=== PATIENT | female | born 1955 | race Caucasian/White ===

== ENCOUNTER → 2018-02-27 | Outpatient (CLI) | payer BC ==
[~2018-02-27] MED LIST: BENZ-39 PO; CEFD300C3 PO; CITA10TA13 PO; DOXY-252 PO; GUAI600T50 PO; LACT1CAP58 PO; PROP225C11 PO; RIVA20TA PO; ROPI1TAB11 PO; SAXA5TAB PO; ZOLP5TAB8 PO
== END | disposition home or self-care (01) ==
LOC: RAH 15:58
PROVIDERS: ATTEND Internal Medicine
DX: S29.9XXA Unspecified injury of thorax, initial encounter (principal); M47.895 Other spondylosis, thoracolumbar region; X58.XXXA Exposure to other specified factors, initial encounter; Y93.89 Activity, other specified; Y92.89 Other specified places as the place of occurrence of the external cause; Y99.8 Other external cause status
CPT/HCPCS: 71046; 71100

== ENCOUNTER 2018-03-15 11:27 | Emergency (ER) | payer BC ==
[2018-03-15] MEDS ORDERED: SODIUM CHLORIDE 0.9% 500ML 500 ML IV ONE (12:00)
[2018-03-15] MEDS ORDERED: ASPIRIN 325 MG TABLET ONE (12:00)
[2018-03-15] MEDS ORDERED: METOPROLOL TARTRATE 1 MG/ML 5ML VIAL IV ONE (12:00)
[2018-03-15 12:06] LABS: BASOPHILS % (AUTO) 0.8 % (0.0-5.0); EOSINOPHILS % (AUTO) 2.2 % (0.0-8.0); HEMATOCRIT 41.7 % (36-48); LYMPHOCYTES % (AUTO) 27.4 % (21.0-51.0); MEAN CORPUSCULAR HEMOGLOBIN 27.1 pg (27.0-33.0); MEAN CORPUSCULAR HGB CONC 33.4 g/dL (32.0-36.0); MEAN CORPUSCULAR VOLUME 81.1 fL (79-99); MONOCYTES % (AUTO) 5.8 % (3.0-13.0); NEUTROPHILS % (AUTO) 63.8 % (40.0-77.0); PLATELET COUNT (AUTO) 202 K/uL (130-400); RED BLOOD CELL COUNT(AUTO) 5.14 MIL/uL (4.00-5.50); RED CELL DISTRIBUTION WIDTH 14.5 % (11.0-15.5)
[2018-03-15 12:14] LABS: POTASSIUM 3.3 mmol/L (3.5-5.1)
[2018-03-15 12:17] LABS: INR 0.95 (0.85-1.15); PARTIAL THROMBOPLASTIN TIME 25.2 SEC (26.3-35.5)
[2018-03-15 12:28] LABS: ALBUMIN 3.9 g/dL (3.5-5.0); BILIRUBIN,TOTAL 0.6 mg/dL (0.2-1.0); CREATINE KINASE MB 1.4 ng/mL (0.5-3.6); TOTAL PROTEIN, SERUM 7.2 g/dL (6.0-8.3)
[2018-03-15] MEDS ORDERED: METOPROLOL TARTRATE 25 MG TAB ONE (14:18)
[2018-03-15] MEDS ORDERED: POTASSIUM BICARB/CIT AC 25 MEQ TABLET.EFF ONE (14:18)
== END 2018-03-15 14:37 | disposition home or self-care (01) ==
LOC: EDH 11:27
DX: T82.198A Other mechanical complication of other cardiac electronic device, initial encounter (principal); I48.91 Unspecified atrial fibrillation; I25.10 Atherosclerotic heart disease of native coronary artery without angina pectoris; E11.9 Type 2 diabetes mellitus without complications; Z88.8 Allergy status to other drugs, medicaments and biological substances
CPT/HCPCS: 36415; 80053; 82550; 82553; 82948; 83735; 83880; 84484; 85025; 85610; 85730; 93005; 96361; 96374; 99285; J3490; J7040

== ENCOUNTER → 2020-06-03 | Outpatient (CLI) | payer MEDICARE ==
[~2020-06-03] MED LIST changes: -ROPI1TAB11 PO; +ROPI1TAB13 PO
== END | disposition home or self-care (01) ==
LOC: RAH 12:27
PROVIDERS: ATTEND Internal Medicine
DX: S59.912A Unspecified injury of left forearm, initial encounter (principal); X58.XXXA Exposure to other specified factors, initial encounter; Y93.89 Activity, other specified; Y92.89 Other specified places as the place of occurrence of the external cause; Y99.8 Other external cause status
CPT/HCPCS: 73030; 73090; 73110

== ENCOUNTER → 2021-02-25 | Outpatient (CLI) | payer MEDICARE | END | disposition home or self-care (01) | LOC: RAH 11:27 | PROVIDERS: ATTEND Internal Medicine | DX: R06.02 Shortness of breath (principal) | CPT/HCPCS: 71046 ==

== ENCOUNTER 2021-04-15 10:27 | Observation (INO) | payer MEDICARE ==
[~2021-04-15] VITALS: Ht 166.4 cm; Wt 57.4 kg
[2021-04-15] MEDS ORDERED: AMIODARONE HCL 450 MG in DEXTROSE 5%-WATER 250 ML IV SCH (11:00)
[2021-04-15] MEDS ORDERED: AMIODARONE HCL 150 MG in DEXTROSE 5%-WATER 100 ML IV SCH (11:00)
[2021-04-15] MEDS ORDERED: AMIODARONE HCL 360 MG in DEXTROSE 5%-WATER 200 ML IV SCH (11:00)
[2021-04-15 11:14] LABS: BASOPHILS % (AUTO) 0.9 % (0.0-5.0); EOSINOPHILS % (AUTO) 3.9 % (0.0-8.0); HEMATOCRIT 45.4 % (36-48); LYMPHOCYTES % (AUTO) 32.3 % (21.0-51.0); MEAN CORPUSCULAR HEMOGLOBIN 26.2 pg (27.0-33.0); MEAN CORPUSCULAR HGB CONC 32.2 g/dL (32.0-36.0); MEAN CORPUSCULAR VOLUME 81.4 fL (79-99); MONOCYTES % (AUTO) 6.1 % (3.0-13.0); NEUTROPHILS % (AUTO) 56.5 % (40.0-77.0); PLATELET COUNT (AUTO) 234 K/uL (130-400); RED BLOOD CELL COUNT(AUTO) 5.58 MIL/uL (4.00-5.50); RED CELL DISTRIBUTION WIDTH 13.1 % (11.0-15.5); WHITE BLOOD COUNT (AUTO) 7.4 K/uL (4.8-10.8)
[2021-04-15] MEDS ORDERED: ONDANSETRON HCL 4 MG/2 ML VIAL IVP PRN (11:15)
[2021-04-15 11:29] LABS: ALBUMIN 3.7 g/dL (3.5-5.0); BILIRUBIN,TOTAL 0.8 mg/dL (0.2-1.0); POTASSIUM 3.3 mmol/L (3.5-5.1); THYROID STIMULATING HORMONE 1.64 uIU/mL (0.36-3.74); TOTAL PROTEIN, SERUM 7.2 g/dL (6.0-8.3)
[2021-04-15] MEDS ORDERED: PHARMACY COMMUNICATION MISC SCH (12:45)
[2021-04-15 13:05] VITALS: BP 148/80
[2021-04-15 16:00] VITALS: BP 133/88
[2021-04-15 20:28] VITALS: BP 140/81
[2021-04-15] MEDS ORDERED: ROPINIROLE HCL 1 MG TABLET PO SCH (21:00)
[2021-04-15] MEDS ORDERED: RIVAROXABAN 20 MG TABLET PO SCH (21:00)
[2021-04-15] MEDS: CARVEDILOL 6.25 MG TABLET PO SCH (21:31)
[2021-04-15] MEDS: METOPROLOL TARTRATE 50 MG TAB PO SCH (21:31)
[2021-04-15] MEDS: TRAMADOL HCL 50 MG TABLET PO SCH (21:35)
[2021-04-16 00:28] VITALS: BP 115/70
[2021-04-16 04:28] VITALS: BP 110/77
[2021-04-16 07:00] VITALS: BP 121/75
[2021-04-16] MEDS: CARVEDILOL 6.25 MG TABLET PO SCH (07:57)
[2021-04-16] MEDS: METOPROLOL TARTRATE 50 MG TAB PO SCH (07:57)
[2021-04-16] MEDS: TRAMADOL HCL 50 MG TABLET PO SCH (07:57)
[2021-04-16] MEDS ORDERED: [UNRECOGNIZED DRUG - OTHER] NASAL SCH (09:00)
[2021-04-16] MEDS ORDERED: IPRATROPIUM 0.06% NASAL SCH (09:00)
[2021-04-16] MEDS ORDERED: ONGLYZA 5 MG PO SCH (09:00)
[2021-04-16 11:00] VITALS: BP 124/84
[2021-04-16] MEDS ORDERED: IOHEXOL 350 MG/ML 100ML INFUS..BTL IV ONE (12:45)
[2021-04-16 16:00] VITALS: BP 139/78
[2021-04-16] MEDS ORDERED: AMIO200T6 PO (16:19)
== END 2021-04-16 17:00 | disposition home or self-care (01) ==
LOC: EDH 10:27 → EDHIP 10:28 → 4CH 13:00
PROVIDERS: ADMIT Internal Medicine Cardiovascular Disease; ATTEND Internal Medicine Cardiovascular Disease
DX: I48.0 Paroxysmal atrial fibrillation (principal); I42.2 Other hypertrophic cardiomyopathy; I47.2 Ventricular tachycardia; E11.9 Type 2 diabetes mellitus without complications; Z86.711 Personal history of pulmonary embolism; Z95.828 Presence of other vascular implants and grafts; Z95.810 Presence of automatic (implantable) cardiac defibrillator; Z79.899 Other long term (current) drug therapy; Z88.8 Allergy status to other drugs, medicaments and biological substances
CPT/HCPCS: 36415; 75574; 80053; 82948 ×5; 84443; 85025; 93005 ×2; 96365; 96366; 96375; 99285; G0378 ×27; J0282 ×5; J2405; J7060 ×5; Q9967

== ENCOUNTER → 2021-05-25 | Outpatient (CLI) | payer MEDICARE ==
[~2021-05-25] MED LIST changes: +AMIO200T6 PO; -PROP225C11 PO
[2021-05-25 11:36] LABS: BASOPHILS % (AUTO) 0.6 % (0.0-5.0); EOSINOPHILS % (AUTO) 2.2 % (0.0-8.0); HEMATOCRIT 43.2 % (36-48); LYMPHOCYTES % (AUTO) 22.9 % (21.0-51.0); MEAN CORPUSCULAR HEMOGLOBIN 26.6 pg (27.0-33.0); MEAN CORPUSCULAR VOLUME 85.9 fL (79-99); MONOCYTES % (AUTO) 6.4 % (3.0-13.0); NEUTROPHILS % (AUTO) 67.8 % (40.0-77.0); PLATELET COUNT (AUTO) 187 K/uL (130-400); RED BLOOD CELL COUNT(AUTO) 5.03 MIL/uL (4.00-5.50); RED CELL DISTRIBUTION WIDTH 13.2 % (11.0-15.5); WHITE BLOOD COUNT (AUTO) 8.3 K/uL (4.8-10.8)
[2021-05-25 11:44] LABS: CREATININE 1.1 mg/dL (0.5-1.5); POTASSIUM 4.4 mmol/L (3.5-5.1)
== END | disposition home or self-care (01) ==
LOC: LAB 10:18
PROVIDERS: ATTEND Urology
DX: R31.29 Other microscopic hematuria (principal)
CPT/HCPCS: 36415; 80048; 85025

== ENCOUNTER → 2021-05-26 | Outpatient (CLI) | payer MEDICARE ==
[~2021-05-26] MED LIST changes: +IOHEXOL 350 MG/ML 100ML INFUS..BTL IV ONE
== END | disposition home or self-care (01) ==
LOC: RAH 09:46
PROVIDERS: ATTEND Urology
DX: N20.0 Calculus of kidney (principal); I70.0 Atherosclerosis of aorta
CPT/HCPCS: 74178; Q9967

== ENCOUNTER 2021-08-24 06:23 | Day surgery (SDC) | payer MEDICARE ==
[~2021-08-24] VITALS: Ht 165.1 cm; Wt 55.6 kg
[~2021-08-24 06:23] MED LIST changes: +0.9%NACL 1000ML 1,000 ML IV ONE; -AMIO200T6 PO; +AMIO200T68 PO; -BENZ-39 PO; +CARV25TA PO; -CEFD300C3 PO; -CITA10TA13 PO; -DOXY-252 PO; +GABA-529 PO; -GUAI600T50 PO; -IOHEXOL 350 MG/ML 100ML INFUS..BTL IV ONE; +IPRA3S NASAL; +METO-391 PO; +OMEP40CA21 PO; +PREVAGEN PO; -ROPI1TAB13 PO; +ROSU10TA28 PO; +TRAM50TA4 PO; -ZOLP5TAB8 PO
[2021-08-24 07:10] VITALS: BP 146/72
[2021-08-24] MEDS ORDERED: PROPOFOL 10 MG/ML 20ML VIAL IV ONE ×2 (08:09→08:37)
[2021-08-24 08:55] VITALS: BP 100/49
[2021-08-24 09:00] VITALS: BP 109/57
[2021-08-24 09:10] VITALS: BP 141/73
== END 2021-08-24 09:26 | disposition home or self-care (01) ==
LOC: DAH 06:23
PROVIDERS: ATTEND Internal Medicine Gastroenterology
DX: Z12.11 Encounter for screening for malignant neoplasm of colon (principal); Z20.822 Contact with and (suspected) exposure to COVID-19; D12.0 Benign neoplasm of cecum; R14.0 Abdominal distension (gaseous); K29.50 Unspecified chronic gastritis without bleeding; K31.89 Other diseases of stomach and duodenum; K63.89 Other specified diseases of intestine; I11.0 Hypertensive heart disease with heart failure; E11.9 Type 2 diabetes mellitus without complications; I50.9 Heart failure, unspecified; E78.5 Hyperlipidemia, unspecified; I48.91 Unspecified atrial fibrillation; Z86.010 Personal history of colon polyps; Z79.84 Long term (current) use of oral hypoglycemic drugs; Z79.01 Long term (current) use of anticoagulants; Z90.710 Acquired absence of both cervix and uterus; Z98.890 Other specified postprocedural states
CPT/HCPCS: 43239; 45381; 45385; 82948; 87635; 88305; 88342; A4215 ×2; A4221; A4222; A4223; A4606; A4620; A4663; C9803; J2704 ×2; J7030

== ENCOUNTER → 2021-11-11 | Outpatient (CLI) | payer MEDICARE ==
[~2021-11-11] MED LIST changes: -0.9%NACL 1000ML 1,000 ML IV ONE
== END | disposition home or self-care (01) ==
LOC: RAH 13:33
PROVIDERS: ATTEND Internal Medicine Cardiovascular Disease
DX: I08.0 Rheumatic disorders of both mitral and aortic valves (principal); I11.9 Hypertensive heart disease without heart failure
CPT/HCPCS: 93306; 93356

== ENCOUNTER 2022-03-06 10:05 | Emergency (ER) | payer MEDICARE ==
[~2022-03-06] VITALS: Ht 170.2 cm; Wt 54.4 kg
[~2022-03-06 10:05] MED LIST changes: -AMIO200T68 PO; -CARV25TA PO; +GLIM1TAB18 PO; -LACT1CAP58 PO; +LINA290C PO; +LISI5TAB21 PO; -METO-391 PO; +METO25TA6 PO; -OMEP40CA21 PO; -PREVAGEN PO; -ROSU10TA28 PO; -TRAM50TA4 PO
[2022-03-06] MEDS ORDERED: ACETAMINOPHEN 500 MG TABLET PO ONE (11:00)
[2022-03-06 11:20] LABS: BASOPHILS % (AUTO) 0.7 % (0.0-5.0); EOSINOPHILS % (AUTO) 2.1 % (0.0-8.0); HEMATOCRIT 39.1 % (36-48); LYMPHOCYTES % (AUTO) 18.6 % (21.0-51.0); MEAN CORPUSCULAR HEMOGLOBIN 26.3 pg (27.0-33.0); MEAN CORPUSCULAR HGB CONC 31.2 g/dL (32.0-36.0); MEAN CORPUSCULAR VOLUME 84.4 fL (79-99); MONOCYTES % (AUTO) 5.9 % (3.0-13.0); NEUTROPHILS % (AUTO) 72.5 % (40.0-77.0); PLATELET COUNT (AUTO) 214 K/uL (130-400); RED BLOOD CELL COUNT(AUTO) 4.63 MIL/uL (4.00-5.50); RED CELL DISTRIBUTION WIDTH 13.8 % (11.0-15.5); WHITE BLOOD COUNT (AUTO) 5.8 K/uL (4.8-10.8)
[2022-03-06 11:21] LABS: CREATININE 0.9 mg/dL (0.5-1.5); POTASSIUM 3.9 mmol/L (3.5-5.1)
[2022-03-06 11:26] LABS: ALBUMIN 3.5 g/dL (3.5-5.0); BILIRUBIN,TOTAL 0.5 mg/dL (0.2-1.0); TOTAL PROTEIN, SERUM 6.6 g/dL (6.0-8.3)
[2022-03-06 12:53] VITALS: BP 152/77
== END 2022-03-06 13:01 | disposition home or self-care (01) ==
LOC: EDH 10:05
DX: S01.81XA Laceration without foreign body of other part of head, initial encounter (principal); Z79.01 Long term (current) use of anticoagulants; Z79.899 Other long term (current) drug therapy; I48.91 Unspecified atrial fibrillation; Z86.718 Personal history of other venous thrombosis and embolism; Z86.711 Personal history of pulmonary embolism; Z98.890 Other specified postprocedural states; W18.30XA Fall on same level, unspecified, initial encounter; Y93.9 Activity, unspecified; Y92.9 Unspecified place or not applicable; Y99.9 Unspecified external cause status
CPT/HCPCS: 36415; 70450; 73020; 80053; 84484; 85025; 93005

== ENCOUNTER → 2022-05-12 | Outpatient (CLI) | payer MEDICARE ==
[2022-05-12 12:54] LABS: ALBUMIN 3.8 g/dL (3.5-5.0); BILIRUBIN,TOTAL 0.4 mg/dL (0.2-1.0); POTASSIUM 4.1 mmol/L (3.5-5.1)
== END | disposition home or self-care (01) ==
LOC: LAB 11:29
PROVIDERS: ATTEND Internal Medicine Cardiovascular Disease
DX: I10 Essential (primary) hypertension (principal)
CPT/HCPCS: 36415; 80053

== ENCOUNTER → 2022-05-16 | Outpatient (CLI) | payer MEDICARE ==
[~2022-05-16] MED LIST changes: +IOHEXOL-350 50ML VIAL IV ONE
== END | disposition home or self-care (01) ==
LOC: RAH 12:00
PROVIDERS: ATTEND Internal Medicine Cardiovascular Disease
DX: I51.7 Cardiomegaly (principal); I26.99 Other pulmonary embolism without acute cor pulmonale
CPT/HCPCS: 71270; Q9967

== ENCOUNTER → 2022-07-19 | Outpatient (CLI) | payer MEDICARE ==
[~2022-07-19] MED LIST changes: -IOHEXOL-350 50ML VIAL IV ONE
== END | disposition home or self-care (01) ==
LOC: RAH 10:57
PROVIDERS: ATTEND Internal Medicine
DX: M47.816 Spondylosis without myelopathy or radiculopathy, lumbar region (principal); M16.12 Unilateral primary osteoarthritis, left hip
CPT/HCPCS: 72100; 73502

== ENCOUNTER → 2023-09-04 | Outpatient (CLI) | payer MEDICARE ==
[2023-09-04 12:43] LABS: BASOPHILS # (AUTO) 0.04 K/uL (0.00-0.20); BASOPHILS % (AUTO) 0.6 % (0.0-5.0); EOSINOPHILS % (AUTO) 1.5 % (0.0-8.0); HEMATOCRIT 38.9 % (36-48); IMMATURE GRANULOCYTE ABSOLUTE 0.02 K/uL (0-1); LYMPHOCYTES # (AUTO) 2.4 K/uL (1.0-4.8); MEAN CORPUSCULAR HEMOGLOBIN 26.8 pg (27.0-33.0); MEAN CORPUSCULAR HGB CONC 30.6 g/dL (32.0-36.0); MEAN CORPUSCULAR VOLUME 87.6 fL (79-99); MONOCYTES # (AUTO) 0.5 K/uL (0.1-1.0); MONOCYTES % (AUTO) 7.9 % (3.0-13.0); NEUTROPHILS # (AUTO) 3.7 K/uL (1.8-7.7); NEUTROPHILS % (AUTO) 54.7 % (40.0-77.0); PLATELET COUNT (AUTO) 182 K/uL (130-400); RED BLOOD CELL COUNT(AUTO) 4.44 MIL/uL (4.00-5.50); RED CELL DISTRIBUTION WIDTH 13.5 % (11.0-15.5); WHITE BLOOD COUNT (AUTO) 6.7 K/uL (4.8-10.8)
[2023-09-04 12:54] LABS: ALBUMIN 3.8 g/dL (3.5-5.0); BILIRUBIN,TOTAL 0.8 mg/dL (0.2-1.0); CREATININE 0.7 mg/dL (0.5-1.5); TOTAL PROTEIN, SERUM 6.8 g/dL (6.0-8.3)
[2023-09-04 13:12] LABS: B-TYPE NATRIURETIC PEPTIDE 259 pg/mL (0-100)
== END | disposition home or self-care (01) ==
LOC: LAB 09:49
PROVIDERS: ATTEND Internal Medicine Cardiovascular Disease
DX: I50.32 Chronic diastolic (congestive) heart failure (principal); Z79.899 Other long term (current) drug therapy
CPT/HCPCS: 36415; 80053; 80061; 83880; 85025

== ENCOUNTER → 2023-10-19 | Outpatient (CLI) | payer MEDICARE | END | disposition home or self-care (01) | LOC: RAH 13:09 | PROVIDERS: ATTEND Internal Medicine | DX: Z12.31 Encounter for screening mammogram for malignant neoplasm of breast (principal) | CPT/HCPCS: 77067 ==

== ENCOUNTER → 2024-12-24 | Outpatient (CLI) | payer MEDICARE ==
[~2024-12-24] MED LIST changes: -GLIM1TAB18 PO; +GLIM1TAB56 PO
[2024-12-24 11:59] LABS: BASOPHILS # (AUTO) 0.04 K/uL (0.00-0.20); BASOPHILS % (AUTO) 0.7 % (0.0-5.0); EOSINOPHILS # (AUTO) 0.19 K/uL (0.00-0.70); EOSINOPHILS % (AUTO) 3.2 % (0.0-8.0); HEMATOCRIT 38.2 % (36-48); IMMATURE GRANULOCYTE ABSOLUTE 0.02 K/uL (0-1); LYMPHOCYTES # (AUTO) 2.3 K/uL (1.0-4.8); LYMPHOCYTES % (AUTO) 39.7 % (21.0-51.0); MEAN CORPUSCULAR HEMOGLOBIN 26.7 pg (27.0-33.0); MEAN CORPUSCULAR HGB CONC 31.2 g/dL (32.0-36.0); MEAN CORPUSCULAR VOLUME 85.8 fL (79-99); MONOCYTES # (AUTO) 0.4 K/uL (0.1-1.0); MONOCYTES % (AUTO) 6.2 % (3.0-13.0); NEUTROPHILS # (AUTO) 2.9 K/uL (1.8-7.7); NEUTROPHILS % (AUTO) 49.9 % (40.0-77.0); PLATELET COUNT (AUTO) 163 K/uL (130-400); RED BLOOD CELL COUNT(AUTO) 4.45 MIL/uL (4.00-5.50); RED CELL DISTRIBUTION WIDTH 13.4 % (11.0-15.5); WHITE BLOOD COUNT (AUTO) 5.9 K/uL (4.8-10.8)
[2024-12-24 12:20] LABS: ALBUMIN 3.5 g/dL (3.5-5.0); BILIRUBIN,TOTAL 0.8 mg/dL (0.2-1.0); CREATININE 0.7 mg/dL (0.5-1.0); POTASSIUM 4.2 mmol/L (3.5-5.1); TOTAL PROTEIN, SERUM 6.5 g/dL (6.0-8.3)
== END | disposition home or self-care (01) ==
LOC: LAB 09:52
PROVIDERS: ATTEND Internal Medicine Cardiovascular Disease
DX: I42.2 Other hypertrophic cardiomyopathy (principal); I47.19 Other supraventricular tachycardia; Z79.899 Other long term (current) drug therapy
CPT/HCPCS: 36415; 80053; 80061; 85025

== ENCOUNTER 2025-04-11 12:07 | Emergency (ER) | payer MEDICARE ==
[~2025-04-11] VITALS: Ht 165.1 cm; Wt 48.1 kg
[2025-04-11] MEDS: GABApentin 100 MG CAPSULE PO STA (12:26)
--- NOTE | 2025-04-11 12:30 | ERN ---
General Chief Complaint: Rib Pain Stated Complaint: POSSIBLE BROKEN RIB Time Seen by MD: 12:09 Source: patient History of Present Illness Initial Comments PATIENT IS A 69-YEAR-OLD FEMALE COMING IN TO BE EVALUATED FOR RIGHT-SIDED CHEST PAIN. PATIENT STATES THAT THE CHEST PAIN OCCURRED WHEN SHE ACCIDENTALLY HIT HERSELF WITH THE FURNITURE. SHE STATES THAT HER PAIN IS IMPROVING BUT HER FAMILY MEMBERS TOLD HER TO COME IN FOR FURTHER EVALUATION. Allergies: Coded Allergies: No Known Drug Allergies (Verified Allergy, 03/26/13) Home Meds Reported Medications Gabapentin (Gabapentin) 100 Mg Capsule, 100 MG PO HS, CAP 01/18/22 Metoprolol Tartrate (Metoprolol Tartrate) 25 Mg Tablet, 25 MG PO HS, TAB 01/18/22 Glimepiride (Glimepiride) 1 Mg Tablet, 1 MG PO HS, TAB 01/18/22 Lisinopril (Lisinopril) 5 Mg Tablet, 5 MG PO HS, TAB 01/18/22 Linaclotide (Linzess) 290 Mcg Capsule, 290 MCG PO HS, CAP 01/18/22 Saxagliptin HCl (Onglyza) 5 Mg Tablet, 5 MG PO PM, TAB 08/23/21 Ipratropium [place] (Atrovent 0.03% Nasal [place]) 21 Mcg/[place], 21 MCG NASAL DAILY, SPRAY 08/23/21 Rivaroxaban (Xarelto) 20 Mg Tablet, 20 MG PO HS, TAB 12/18/16 Past Medical History Past Medical History: A-Fib, Anemia, Diabetes-Type II, High Cholesterol, Hypertension Medical History Other: CARDIOMYOPATHY, HX OF PULMONARY EMBOLISMS, HYPOKALEMIA Past Surgical History: Hysterectomy, Pacer/AICD Surgical History Other: ABLATION Social History Social History: Negative, Lives with family Female( History) History: Not Applicable ROS Dictation CONSTITUTIONAL: NO CHILLS, NO FEVER, NO WEAKNESS, NO DIAPHORESIS, NO MALAISE. HEAD/FACE: NO SIGNS OF TRAUMA. EENT: NO EYE PAIN, NO BLURRED VISION, NO TEARING, NO DOUBLE VISION, NO EAR PAIN, NO EAR DISCHARGE, NO NOSE PAIN, NO NASAL CONGESTION, NO THROAT PAIN, NO THROAT SWELLING, NO MOUTH PAIN. RESPIRATORY: NO COUGH, NO ORTHOPNEA, NO SOB, NO STRIDOR, NO WHEEZING. CARDIOVASCULAR: NO CHEST PAIN, NO EDEMA, NO PALPITATIONS, NO SYNCOPE. GASTROINTESTINAL/ABDOMINAL: NO ABDOMINAL PAIN, NO CONSTIPATION, NO DIARRHEA, NO NAUSEA, NO VOMITING. GENITOURINARY: NO ABNORMAL DISCHARGE, NO DYSURIA, NO FREQUENT URINATION, NO HEMATURIA. NO COMPLAINTS OF PAIN IN THE GENITALS. MUSCULOSKELETAL: NO BACK PAIN, NO GOUT, NO JOINT PAIN, NO JOINT SWELLING, NO MUSCLE PAIN, NO MUSCLE STIFFNESS, NO NECK PAIN. INTEGUMENTARY: NO CHANGE IN COLOR, NO CHANGE IN HAIR/NAILS, NO DRYNESS, NO LESION, NO LUMPS, NO RASH. NEUROLOGICAL/PSYCH: NO ANXIETY, NOT DEPRESSED, NO EMOTIONAL PROBLEM, NO HEADACHE, NO NUMBNESS, NO PRE-EXISTING DEFICIT, NO HISTORY OF SEIZURES, NO TREMORS, NO WEAKNESS. HEMATOLOGIC/LYMPHATIC: NOT ANEMIC, NO HISTORY OF BLOOD CLOTS, NO APPARENT BLEEDING, NO BRUISING, GLANDS NOT SWOLLEN. ALL SYSTEMS NEGATIVE, EXCEPT NOTED. Physical Exam Physical Exam Dictation VITAL SIGNS: REVIEWED. GENERAL APPEARANCE: ALERT, ORIENTED X3, NO ACUTE DISTRESS, OBESE. HEAD AND FACE: NON-TRAUMATIC. EYES: PERRL, PINK CONJUNCTIVAS, EYELID NO TRAUMA, ANTERIOR CHAMBER CLEAR. EARS: PINNAS INTACT AND NO SIGNS OF TRAUMA OR ERYTHEMA. EAR CANALS CLEAR AND NO DISCHARGE. TMS NO ERYTHEMA. NOSE: NO DISCHARGE, NO BLEEDING. OROPHARYNX: MOUTH NORMAL, TEETH NO CARIES, TONGUE PINK. PHARYNX CLEAR, NO ERYTHEMA. TONSILS NO EXUDATES, NO ABSCESSES NOTED. MUCOUS MEMBRANE MOIST. NECK: SUPPLE, NON-TENDER, NO THYROMEGALY, NO MASSES, NO JVD, NO BRUITS. BREAST: DEFERRED. CHEST: NO TENDERNESS, NO CREPITUS, NO PARADOXICAL MOVEMENT, NO RETRACTIONS. LUNGS: CLEAR, WELL-VENTILATED, SYMMETRIC, NO RALES, NO WHEEZING, NO RHONCHI, NO STRIDOR, GOOD BREATH SOUNDS BILATERALLY. HEART: REGULAR RATE, REGULAR RHYTHM, NO MURMUR, NO GALLOPS. VASCULAR: NO PERIPHERAL EDEMA. ABDOMEN: SOFT, POSITIVE BOWEL SOUNDS, NONDISTENDED, NO GUARDING, NONTENDER, NO REBOUND, NO MASSES NO HEPATOMEGALY, NO SPLENOMEGALY, NO HERNANDEZ'S SIGN, NO HERNIAS. RECTAL: DEFERRED. GENITAL: DEFERRED. NEUROLOGICAL: NORMAL SPEECH, GROSS MOTOR FUNCTION INTACT, GROSS SENSORY FUNCTION INTACT. MUSCULOSKELETAL: NECK NONTENDER, FULL RANGE OF MOTION, BACK NONTENDER, FULL RANGE OF MOTION. EXTREMITIES: NONTENDER, FULL RANGE OF MOTION. SKIN: COLOR PINK, DRY, NO TURGOR, NO RASH, NO LACERATIONS, NO ABRASIONS, NO CONTUSIONS. LYMPHATICS: DEFERRED. Results Laboratory and Microbiology Labs Reviewed?: Yes EKG/XRAY/US/CT/MRI EKG Comment 04/11/2025 TIME 12:19 P.M. VENTRICULAR RATE [address] WAVE ELEVATION OR DEPRESSION CT Scan Comment [facility] [address] [place] [address] IMAGING REPORT Signed PATIENT: LUPE BRITO MR#: [id number] : 1955 SEX: F AGE: 69 LOCATION: [facility] ORDER 38 STATUS: [facility] ER REPORT#: [id number] SERVICE 37 REASON: RIGHT LOWER RIB PAIN ORDERING PHYSICIAN: YENIFER MENDOZA MD PROCEDURE: CHEST WO - CT CHEST W/O CONTRAST CT CHEST W/O CONTRAST HISTORY: Right lower rib pain COMPARISON: None TECHNIQUE: Multiple sequential axial images of the chest were obtained from the thoracic inlet through upper abdomen. Patient was not given contrast through intravenous route. FINDINGS: There is no evidence of pulmonary nodule or parenchymal disease. No pleural effusion or pericardial effusion is seen. There is no evidence of pneumothorax. There are normal size mediastinal and hilar lymph nodes. The heart is not enlarged. Degenerative changes of the thoracolumbar spine are present. There is no evidence of adrenal nodule. Coronary artery calcifications are seen. IVC filter. Mild interstitial fibrotic changes as IMPRESSION: 1. No evidence of pulmonary nodule or effusion is seen. CT was performed with one or more following dose reduction techniques: automated exposure control, adjustment of the mA and kv according to patient's size, or use of a iterative reconstruction technique. DICTATED BY: KYREE MCKAY MD DATE: 04/11/25 1446 ELECTRONICALLY SIGNED BY: KYREE MCKAY MD DATE: 04/11/25 145 [facility] MDM: DIFFERENTIAL DIAGNOSIS: COSTOCHONDRITIS, CHEST WALL PAIN, RIB FRACTURE, RATIONALE: TESTS CONSIDERED AND ORDERED SECONDARY TO SHARED DECISION MAKING INCLUDE: PREVIOUS OUTSIDE RECORDS REVIEWED: OLD ER VISITS. RISK OF COMPLICATION AND/OR MORBIDITY OR MORTALITY OF PATIENT MANAGEMENT: NONE MEDICATIONS-PER MEDICATION RECONCILIATION PATIENT IS A 69-YEAR-OLD FEMALE COMING IN TO BE EVALUATED FOR RIGHT-SIDED CHEST PAIN. SHE ATTRIBUTES THE PAIN TO HITTING HERSELF WITH SOME FURNITURE. X-RAY AND EKG DID NOT DISCLOSE ACUTE FINDINGS. PATIENT WILL BE DISCHARGED IN STABLE CONDITION WITH A DIAGNOSIS OF CHEST WALL PAIN. ED Course Orders Procedure Category Date Status Time 12 Lead Ekg Tracing- EKG 04/11/25 Resulted Technical 12:13 Ribs Uni Rt W Pa RAD 04/11/25 Taken Chest 3+ Vws 12:13 Gabapentin 100 Mg Cap PHA 04/11/25 Complete (Neurontin 100 Mg 12:13 Ct Chest W/O Contrast CT 04/11/25 Resulted 13:38 Current Medications Medications (Trade) Dose Ordered Sig/Aryan Route PRN Reason Start Time Stop Time Status Last Admin Dose Admin Gabapentin (NEURontin 100 mg CAP) 100 mg ONCE STAT PO 04/11/25 12:13 04/11/25 12:24 DC 04/11/25 12:26 Vital Signs Date Time Temp Pulse Resp B/P (MAP) Pulse Ox O2 Delivery O2 Flow Rate FiO2 04/11/25 12:10 99.0 78 16 157/76 98 Room Air DX & DISP Disposition: Discharge Departure Impression: Primary Impression: Costochondritis, acute Condition: Stable Scripts Gabapentin (Gabapentin) 100 Mg Capsule 1 CAP PO BID for 5 Days, #10 CAP 0 Refills Prov: YENIFER MENDOZA MD 04/11/25 Additional Instructions: FOLLOW-UP WITH PRIMARY CARE PROVIDER IN 1 TO 2 DAYS. TAKE MEDICATIONS DIRECTED HERE IN THE EMERGENCY ROOM. OKAY TO CONTINUE HOME MEDICATIONS UNLESS OTHERWISE DISCUSSED DURING YOUR VISIT IN THE EMERGENCY ROOM TODAY. RETURN TO YOUR NEAREST EMERGENCY ROOM IF SYMPTOMS WORSEN OR IF THERE IS NO IMPROVEMENT. CALL 911 IF YOU NEED IMMEDIATE ASSISTANCE. TAKE TYLENOL EYTJ-PTY-ADVYOAM NEEDED AND IF NO CONTRAINDICATIONS ARE PRESENT. INCREASE ORAL HYDRATION. A WOUND CULTURE OR URINE CULTURE WAS ORDERED HERE IN THE EMERGENCY ROOM DEPARTMENT PLEASE FOLLOW-UP WITH PRIMARY CARE PROVIDER AND ADVISE THEM TO GET REPEAT PORTS FROM OUR FACILITY. IF YOU HAD ANY RAHAT WRAP/SPLINTS THAT WERE APPLIED HERE, PLEASE DO NOT REMOVE THEM UNTIL YOU SEE YOUR PRIMARY CARE OR SPECIALTY. REFERRALS: Referrals: VIRGIE LEE MD (PCP) Time of Disposition: 15:11 YENIFER MENDOZA MD April 11, 2025 12:30
--- NOTE | 2025-04-11 13:22 | EKG ---
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1955 Requested By: YENIFER MENDOZA Order Number: [id number] Reading MD: Silvia Patterson Measurements Intervals [place] Rate: 69 P: 16 [place]: 144 QRS: 35 QRSD: 93 T: 27 QT: 444 QTc: 472 Interpretive Statements Sinus rhythm Atrial premature complex Nonspecific T abnrm, anterolateral leads Compared to ECG 03/06/2022 10:20:27 Atrial premature complex(es) now present Atrial-paced complex(es) or rhythm no longer present Ventricular-paced complex(es) or rhythm no longer present Electronically Signed On 04-11-2025 14:49:34 CDT by Silvia Patterson Please click the below link to view image of tracing.
--- NOTE | 2025-04-11 14:55 | HMCIMG ---
CT CHEST W/O CONTRAST HISTORY: Right lower rib pain COMPARISON: None TECHNIQUE: Multiple sequential axial images of the chest were obtained from the thoracic inlet through upper abdomen. Patient was not given contrast through intravenous route. FINDINGS: There is no evidence of pulmonary nodule or parenchymal disease. No pleural effusion or pericardial effusion is seen. There is no evidence of pneumothorax. There are normal size mediastinal and hilar lymph nodes. The heart is not enlarged. Degenerative changes of the thoracolumbar spine are present. There is no evidence of adrenal nodule. Coronary artery calcifications are seen. IVC filter. Mild interstitial fibrotic changes as IMPRESSION: 1. No evidence of pulmonary nodule or effusion is seen. CT was performed with one or more following dose reduction techniques: automated exposure control, adjustment of the mA and kv according to patient's size, or use of a iterative reconstruction technique.
[2025-04-11] MEDS ORDERED: GABA-529 PO (15:11)
[2025-04-11 15:14] VITALS: BP 141/73; PULSE 76; RESP 16; TEMP 98.9; O2SAT 98
--- NOTE | 2025-04-11 16:57 | HMCIMG ---
RIBS UNI RT W PA CHEST 3+ VWS REASON: CHEST PAIN. COMPARISON: None TECHNIQUE: Frontal projection of the chest was obtained. 4 images of the right ribs were obtained. FINDINGS: No acute pulmonary infiltrates is seen to the heart is not enlarged. Pacemaker is seen entering from the left. Degenerative changes are seen. No acute displaced fracture is seen of right ribs. IMPRESSION: Findings are described above.
== END 2025-04-11 15:23 | disposition home or self-care (01) ==
LOC: EDH 12:07
DX: M94.0 Chondrocostal junction syndrome [Tietze] (principal); E11.9 Type 2 diabetes mellitus without complications; E78.00 Pure hypercholesterolemia, unspecified; I10 Essential (primary) hypertension; I48.91 Unspecified atrial fibrillation; Z79.899 Other long term (current) drug therapy; Z86.711 Personal history of pulmonary embolism; Z90.710 Acquired absence of both cervix and uterus; Z95.810 Presence of automatic (implantable) cardiac defibrillator
CPT/HCPCS: 71101; 71250; 93005; 99284

== ENCOUNTER 2025-06-09 05:47 | Day surgery (SDC) | payer MEDICARE ==
[2025-06-06 14:03] LABS: IMMATURE GRANULOCYTE ABSOLUTE 0.01 K/uL (0-1); NUCLEATED RED BLOOD CELLS 0.0 % (0.0-0.19); PLATELET COUNT (AUTO) 167 K/uL (130-400); RED BLOOD CELL COUNT(AUTO) 4.38 MIL/uL (4.00-5.50); RED CELL DISTRIBUTION WIDTH 14.1 % (11.0-15.5); WHITE BLOOD COUNT (AUTO) 5.6 K/uL (4.8-10.8)
[2025-06-06 14:13] LABS: INR 1.13 (0.85-1.15)
[2025-06-06 14:14] LABS: CREATININE 0.9 mg/dL (0.5-1.0); GLOMERULAR FILTR. RATE CALC 68.0 mL/min (>90); GLUCOSE,RANDOM 208.0 mg/dL (70-105); SODIUM SERUM 141.0 mmol/L (136-145); UREA NITROGEN, BLOOD 23.0 mg/dL (7-18)
[2025-06-06 14:45] VITALS: BP 151/65; PULSE 69; RESP 13; TEMP 97.4
--- NOTE | 2025-06-06 15:38 | EKG ---
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
[~2025-06-09] VITALS: Ht 166.4 cm; Wt 52.1 kg
[2025-06-09] VITALS (8 sets, daily range): BP systolic 108–140; BP diastolic 54–70; PULSE 62–65; RESP 10–16; TEMP 97–97.3
[~2025-06-09 05:47] MED LIST changes: +DAPA5TAB PO; +DENO60DI SQ; -GABA-529 PO; -GLIM1TAB56 PO; -LISI5TAB21 PO; +ONDA-243 PO; +OZEMPIC SQ; +PHARMACY COMMUNICATION MISC SCH; +PRAM0.129 PO; +PREG150C47 PO; +RIVA15TA PO; -RIVA20TA PO; -SAXA5TAB PO; +[UNRECOGNIZED DRUG - OTHER] OU
[2025-06-09] MEDS ORDERED: SODIUM BICARB 50MEQ 50ML VIAL 50 ML ONE (07:11)
[2025-06-09] MEDS ORDERED: LIDOCAINE HCL 1% MDV 50ML VIAL ONE (07:11)
[2025-06-09] MEDS: 0.9%NACL 1000ML 1,000 ML IV SCH (07:18)
[2025-06-09] MEDS ORDERED: MIDAZOLAM HCL 1 MG/ML 2ML VIAL ONE ×2 (07:42→08:06)
[2025-06-09] MEDS ORDERED: BACITRACIN 1 EACH PACKET TP ONE (07:54)
[2025-06-09] MEDS ORDERED: TRAM50TA4 PO (09:08)
--- NOTE | 2025-06-09 11:06 | NUR ---
Full and complete discharge instructions given to Patient and Family both verbally and in writing. Explained Surgical procedure AICD precautions and follow up.AICD incision site clean dry and intact. No evidence of bleeding, bruising or hematoma. All questions answered. PIV removed with catheter tip intact. at bedside appearing supportive. W/C to POV with to home
== END 2025-06-09 11:08 | disposition home or self-care (01) ==
LOC: DAH 05:47
PROVIDERS: ATTEND Internal Medicine Cardiovascular Disease
DX: Z45.02 Encounter for adjustment and management of automatic implantable cardiac defibrillator (principal); I48.0 Paroxysmal atrial fibrillation; I47.19 Other supraventricular tachycardia; I42.2 Other hypertrophic cardiomyopathy; G25.81 Restless legs syndrome; E11.9 Type 2 diabetes mellitus without complications; G47.33 Obstructive sleep apnea (adult) (pediatric); Z99.89 Dependence on other enabling machines and devices; Z88.8 Allergy status to other drugs, medicaments and biological substances; Z90.710 Acquired absence of both cervix and uterus; Z79.01 Long term (current) use of anticoagulants; Z98.890 Other specified postprocedural states; Z79.899 Other long term (current) drug therapy
CPT/HCPCS: 80048; 85025; 85610; 85730; 36415; 93005; 33263; 82948 ×2; 99156; 99157 ×3; C1721; J3010; J0690; J0665; J3490 ×2; J2250 ×2; A4215; A4222; A4221; A4663; A4216; A4606; A4223 ×3

== ENCOUNTER → 2025-08-06 | Outpatient (CLI) | payer MEDICARE ==
[~2025-08-06] MED LIST changes: -PHARMACY COMMUNICATION MISC SCH; +TRAM50TA4 PO
--- NOTE | 2025-08-06 18:12 | HMCIMG ---
EXAM: CR Chest, 2 View. CLINICAL HISTORY: ACUTE BRONCHITIS, UNSPECIFIED COMPARISON: None provided. FINDINGS: LUNGS: Emphysematous lung changes No active infiltrate PLEURAL SPACES: No pleural effusion or pneumothorax. MEDIASTINUM: Cardiac size and mediastinal contours within normal limits. BONES: No acute osseous abnormality. MISCELLANEOUS: Pacemaker evident IMPRESSION: 1. Emphysematous lung changes 2. Pacemaker evident 3. No active infiltrate /[place]
== END | disposition home or self-care (01) ==
LOC: RAH 15:48
PROVIDERS: ATTEND Clinical Nurse Specialist Family Health
DX: J43.9 Emphysema, unspecified (principal); J20.9 Acute bronchitis, unspecified; Z95.0 Presence of cardiac pacemaker
CPT/HCPCS: 71046

== ENCOUNTER 2025-08-08 10:53 | Emergency (ER) | payer MEDICARE ==
[~2025-08-08] VITALS: Ht 165.1 cm; Wt 44.9 kg
[2025-08-08 11:34] LABS: IMMATURE GRANULOCYTE ABSOLUTE 0.01 K/uL (0-1); NUCLEATED RED BLOOD CELLS 0.0 % (0.0-0.19); PLATELET COUNT (AUTO) 331 K/uL (130-400); RED BLOOD CELL COUNT(AUTO) 6.21 MIL/uL (4.00-5.50); RED CELL DISTRIBUTION WIDTH 12.9 % (11.0-15.5); WHITE BLOOD COUNT (AUTO) 7.1 K/uL (4.8-10.8)
--- NOTE | 2025-08-08 11:39 | EKG ---
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
[2025-08-08 11:44] LABS: INR 1.05 (0.85-1.15)
[2025-08-08] MEDS: 0.9%NACL 1000ML 1,000 ML IV ONE (11:53)
[2025-08-08 11:55] LABS: ASPARTATE AMINOTRANSFERASE 18.0 U/L (10-37); CREATININE 0.8 mg/dL (0.5-1.0); GLOMERULAR FILTR. RATE CALC 79.0 mL/min (>90); GLUCOSE,RANDOM 238.0 mg/dL (70-105); TOTAL PROTEIN, SERUM 7.3 g/dL (6.0-8.3); UREA NITROGEN, BLOOD 34.0 mg/dL (7-18)
[2025-08-08 12:08] LABS: SODIUM SERUM 139.0 mmol/L (136-145)
--- NOTE | 2025-08-08 12:11 | HMCIMG ---
CHEST 1VW REASON: sob COMPARISON: Prior study from 08/06/2025 is available. FINDINGS: Single view of the chest was obtained. Lungs are clear. There is hyperaeration of lungs with flattening of both hemidiaphragms suggesting of chronic obstructive pulmonary disease. Heart size is normal. There is a left atrial clipping seen. There is a left-sided AICD with lead in right atrium and right ventricle. There is no pulmonary vascular congestion. Mediastinum and bony thorax appear unremarkable. IMPRESSION: 1. Unchanged from prior study with no evidence of airspace consolidation or pulmonary venous congestion 2. Chronic obstructive pulmonary disease.
[2025-08-08] MEDS: MAGNESIUM OXIDE 400 MG TABLET PO ONE (12:17)
[2025-08-08 12:38] LABS: SARS-CoV-2, RNA, NAAT NEGATIVE SARS CoV-2 (NEGATIVE)
[2025-08-08 12:39] LABS: INFLUENZA TYPE A Negative For Type A (NEGATIVE); INFLUENZA TYPE B Negative For Type B (NEGATIVE)
[2025-08-08 13:26] LABS: APPEARANCE,URINE CLEAR (CLEAR); GLUCOSE, URINE (UA) >=1000 mg/dL (NEGATIVE); LEUKOCYTE ESTERASE ,URINE NEGATIVE Leu/uL (NEGATIVE); NITRATE,URINE NEGATIVE (NEGATIVE); OCCULT BLOOD,URINE NEGATIVE (NEGATIVE)
[2025-08-08 13:27] LABS: ADD UA MICROSCOPIC YES
[2025-08-08 13:28] LABS: SQUAMOUS EPITHELIAL CELL,UR RARE /HPF (0-2)
--- NOTE | 2025-08-08 14:04 | ERN ---
General Chief Complaint: Weakness Stated Complaint: GBW Time Seen by MD: 10:54 Time Seen by Midlevel: 10:54 Source: patient History of Present Illness Allergies: Coded Allergies: carvedilol (Unverified Allergy, Unknown, 06/06/25) citalopram (Unverified Allergy, Unknown, 06/06/25) lisinopril (Unverified Allergy, Unknown, 06/06/25) prochlorperazine (Unverified Allergy, Unknown, 06/06/25) ropinirole (Unverified Allergy, Unknown, 06/06/25) Home Meds Active Scripts Tramadol Hcl (Tramadol HCl) 50 Mg Tablet, 50 MG PO Q6HPRN PRN for PAIN, #15 TAB 0 Refills Prov:JOSE MARIA VIEYRA MD 06/09/25 Reported Medications Denosumab (Prolia) 60 Mg/Ml Disp.syrin, 60 MG SQ [id number], DIS.SYR 06/06/25 [Meibo] No Conflict Check, 1 DROP OU TID 06/06/25 Dapagliflozin Propanediol (Farxiga) 5 Mg Tablet, 5 MG PO HS, TAB 06/06/25 Ondansetron (Ondansetron Odt) 4 Mg Tab.rapdis, 4 MG PO AD PRN for NAUSEA/VOMITING, TAB 06/06/25 [Ozempic] No Conflict Check, 0.5 MG SQ Monday06/06/25 Pramipexole Di-HCl (Pramipexole Dihydrochloride) 0.125 Mg Tablet, 0.125 MG PO BID, TAB 06/06/25 Pregabalin (Pregabalin) 150 Mg Capsule, 150 MG PO BID, CAP 06/06/25 Rivaroxaban (Xarelto) 15 Mg Tablet, 15 MG PO HS, TAB 06/06/25 Metoprolol Tartrate (Metoprolol Tartrate) 25 Mg Tablet, 25 MG PO HS, TAB 01/18/22 Linaclotide (Linzess) 290 Mcg Capsule, 290 MCG PO HS, CAP 01/18/22 Ipratropium [place] (Atrovent 0.03% Nasal [place]) 21 Mcg/[place], 21 MCG NASAL DAILY, SPRAY 08/23/21 Past Medical History Past Medical History: A-Fib, Anemia, Diabetes-Type II, High Cholesterol, Hypertension Medical History Other: CARDIOMYOPATHY, HX OF PULMONARY EMBOLISMS, HYPOKALEMIA Past Surgical History: Hysterectomy, Pacer/AICD Surgical History Other: ABLATION Social History Social History: Negative, Lives with family Female( History) History: Not Applicable ROS Dictation CONSTITUTIONAL: Negative except for HPI HEAD/FACE: Negative except for HPI EENT: Negative except for HPI RESPIRATORY: Negative except for HPI GASTROINTESTINAL/ABDOMINAL: Negative except for HPI GENITOURINARY: Negative except for HPI MUSCULOSKELETAL: Negative except for HPI INTEGUMENTARY: Negative except for HPI NEUROLOGICAL/PSYCH: Negative except for HPI HEMATOLOGIC/LYMPHATIC: Negative except for HPI All Systems Negative, Except as noted above. 13 point review of systems assessed and all negative except for above. Physical Exam Physical Exam Dictation Vital Signs reviewed General Appearance: Alert, oriented x 3, no acute distress, well developed, nourished. Head and Face: non-traumatic. Eyes: PERRL, pink conjunctivas, eyelid no trauma, anterior chamber with arcus senilis. Ears: Pinnas intact and no signs of trauma or erythema ear canals clear and no discharge TM no erythema Nose: No discharge, no bleeding. Oropharynx: Mouth normal, tongue pink, pharynx clear,no erythema, tonsils no exudates, no abscesses noted, mucous membrane moist Neck: Supple, non-tender, no thyromegaly, no masses, no JVD, no bruits Breast:Deferred Chest:No tenderness, no crepitus, no paradoxical movement, no retractions Lungs:Clear, well-ventilated, symmetric, no rales, no wheezing, no rhonchi, no stridor, good breath sounds bilaterally Heart: Regular rate, regular rhythm, no murmur, no gallops Vascular: no peripheral edema, Abdomen: Soft, positive bowel sounds, nondistended, no guarding, nontender, no rebound, no masses no hepatomegaly, no splenomegaly, no Bar's sign, no hernias. Rectal: Deferred Genital: Deferred Neurological: Normal speech, motor function intact, sensory function intact Musculoskeletal: Neck nontender, full range of motion, back nontender, full range of motion, Extremities: nontender, full range of motion Skin: Color pink, dry, no turgor, no rash, no lacerations, no abrasions, no contusions. Lymphatic: Deferred Results Laboratory and Microbiology Lab and Micro Result Laboratory Tests Test 08/08/25 11:27 08/08/25 11:53 08/08/25 12:21 White Blood Count 7.1 K/uL (4.8-10.8) Red Blood Count 6.21 MIL/uL (4.00-5.50) H Hemoglobin 16.2 g/dL (12.0-16.0) H Hematocrit 50.5 % (36-48) H Mean Corpuscular Volume 81.3 fL (79-99) Mean Corpuscular Hemoglobin 26.1 pg (27.0-33.0) L Mean Corpuscular Hemoglobin Concent 32.1 g/dL (32.0-36.0) Red Cell Distribution Width 12.9 % (11.0-15.5) Platelet Count 331 K/uL (130-400) Mean Platelet Volume 10.3 fL (7.5-10.5) Immature Granulocyte % (Auto) 0.1 % (0-1) Neutrophils (%) (Auto) 58.8 % (40.0-77.0) Lymphocytes (%) (Auto) 31.9 % (21.0-51.0) Monocytes (%) (Auto) 5.8 % (3.0-13.0) Eosinophils (%) (Auto) 2.8 % (0.0-8.0) Basophils (%) (Auto) 0.6 % (0.0-5.0) Neutrophils # (Auto) 4.2 K/uL (1.8-7.7) Lymphocytes # (Auto) 2.3 K/uL (1.0-4.8) Monocytes # (Auto) 0.4 K/uL (0.1-1.0) Eosinophils # (Auto) 0.20 K/uL (0.00-0.70) Basophils # (Auto) 0.04 K/uL (0.00-0.20) Absolute Immature Granulocyte (auto 0.01 K/uL (0-1) Nucleated Red Blood Cells 0.0 % (0.0-0.19) Prothrombin Time 11.1 SEC (9.6-11.6) Prothromb Time International Ratio 1.05 (0.85-1.15) Activated Partial Thromboplast Time 31.3 SEC (26.3-35.5) Sodium Level 139 mmol/L (136-145) Potassium Level 4.0 mmol/L (3.5-5.1) Chloride Level 98 mmol/L (101-111) L Carbon Dioxide Level 29 mmol/L (21-32) Blood Urea Nitrogen 34 mg/dL (7-18) H Creatinine 0.8 mg/dL (0.5-1.0) Glomerular Filtration Rate Calc 79 mL/min (>90) Random Glucose 238 mg/dL (70-105) H Total Calcium 9.9 mg/dL (8.5-10.1) Magnesium Level 1.20 mg/dL (1.80-2.40) L Total Bilirubin 0.6 mg/dL (0.2-1.0) Aspartate Amino Transf (AST/SGOT) 18 U/L (10-37) Alanine Aminotransferase (ALT/SGPT) 16 U/L (12-78) Alkaline Phosphatase 111 U/L (50-136) Troponin I High Sensitivity 22 ng/L (4-50) B-Type Natriuretic Peptide 78 pg/mL (0-100) Total Protein 7.3 g/dL (6.0-8.3) Albumin 0.9 g/dL (3.5-5.0) L Lipase 27 U/L (16-77) Influenza Type A Antigen Negative For Type A Influenza Type B Antigen Negative For Type B SARS-CoV-2, RNA, NAAT NEGATIVE SARS CoV-2 Urine Color LIGHT-YELLOW (YELLOW) Urine Appearance CLEAR (CLEAR) Urine pH 6.0 (5.0-8.0) Urine Specific [place] 1.044 (1.001-1.031) Urine Protein NEGATIVE mg/dL (NEGATIVE) Urine Glucose (UA) >=1000 mg/dL (NEGATIVE) H Urine Ketones 40 mg/dL (NEGATIVE) H Urine Occult Blood NEGATIVE (NEGATIVE) Urine Nitrate NEGATIVE (NEGATIVE) Urine Bilirubin NEGATIVE mg/dL (NEGATIVE) Urine Urobilinogen 0.2 mg/dL (0.2-1.0) Urine Leukocyte Esterase NEGATIVE [place]/uL Urine RBC 0-1 /HPF (0-1) Urine WBC 0-1 /HPF (0-1) Urine Squamous Epithelial Cells RARE /HPF (0-2) Urine Bacteria None /HPF (None Seen) Labs Reviewed?: Yes ED Course Orders Procedure Category Date Status Time 12 Lead Ekg Tracing- EKG 08/08/25 Complete Technical 11:16 Cbc With Differential LAB 08/08/25 Complete 11:16 Comprehensive LAB 08/08/25 Complete Metabolic Panel 11:16 Magnesium LAB 08/08/25 Complete 11:16 Lipase LAB 08/08/25 Complete 11:16 Covid Rna Naat LAB 08/08/25 Complete 11:16 Influenza Type A & B, LAB 08/08/25 Complete Rapid 11:16 Pt And Ptt LAB 08/08/25 Complete 11:16 Troponin I High LAB 08/08/25 Complete Sensitivity 11:16 Urinalysis Profile LAB 08/08/25 Complete 11:16 Chest 1vw RAD 08/08/25 Resulted 11:16 B-Type Natriuretic LAB 08/08/25 Complete Peptide 11:16 0.9%Nacl 1000ml (Ns PHA 08/08/25 Complete 1000ml) 11:30 Magnesium Oxide PHA 08/08/25 Complete (Mag-Ox) 12:30 Current Medications Medications (Trade) Dose Ordered Sig/Aryan Route PRN Reason Start Time Stop Time Status Last Admin Dose Admin Magnesium Oxide (Mag-Ox) 400 mg ONCE ONCE PO 08/08/25 12:30 08/08/25 12:31 DC 08/08/25 12:17 Sodium Chloride 1,000 ml @ 0 mls/hr ONCE ONCE IV 08/08/25 11:30 08/08/25 11:31 DC 08/08/25 11:53 Vital Signs Date Time Temp Pulse Resp B/P (MAP) Pulse Ox O2 Delivery O2 Flow Rate FiO2 08/08/25 14:16 97.7 71 13 131/71 100 Room Air* 0 08/08/25 12:47 97.7 77 22 119/74 100 Room Air* 0 08/08/25 11:34 97.9 83 19 138/95 99 Room Air* 0 08/08/25 10:55 97.9 90 16 132/84 99 Room Air 0 DX & DISP Disposition: Discharge Departure Impression: Primary Impression: Mild dehydration Additional Impressions: Hypomagnesemia, Hyperglycemia Condition: Stable Referrals: KEVEN QUINTANILLA MD (PCP) Time of Disposition: 14:07 I have reviewed the case, and I agree with, Diagnosis and Plan I performed the substantive portion of the visit. I have reviewed and personally made and approve the management plan that is documented in the note by myself or the WILDA. I acknowledge for responsibility for the patient's management plan. YULISA KRAMER Aug 08, 2025 14:04
[2025-08-08 14:16] VITALS: BP 131/71; PULSE 71; RESP 13; TEMP 97.7; O2SAT 100
--- NOTE | 2025-08-08 14:39 | NUR ---
DC PATIENT WAS DC'D BY YULISA MAGALLANES I DC'D PATIENTS IV WITH CATH STILL INTACT AND APPLIED 2X2 GAUZE WITH COBAN I EXPLAINED TO PATIENT TO FOLLOW UP WITH PCP, PROVIDED INFO BASED ON DIAGNOSIS, AND ANSWERED ANY FOLLOW UP QUESTIONS PATIENT AMBULATED OUT OF ED, NO COMPLICATIONS
== END 2025-08-08 16:23 | disposition home or self-care (01) ==
LOC: EDH 10:53
DX: E86.0 Dehydration (principal); E83.42 Hypomagnesemia; E11.65 Type 2 diabetes mellitus with hyperglycemia; E78.00 Pure hypercholesterolemia, unspecified; I10 Essential (primary) hypertension; J44.9 Chronic obstructive pulmonary disease, unspecified; Z20.822 Contact with and (suspected) exposure to COVID-19; Z79.899 Other long term (current) drug therapy; Z88.8 Allergy status to other drugs, medicaments and biological substances; Z90.710 Acquired absence of both cervix and uterus; Z95.810 Presence of automatic (implantable) cardiac defibrillator
CPT/HCPCS: 99285; 96360; 71045; 87635; 96361; 83735; 84484; 80053; 83880; 83690; 85025; 85610; 85730; 87804 ×2; 81001; 36415; 93005; J7030

== ENCOUNTER → 2025-09-22 | Outpatient (CLI) | payer MEDICARE ==
--- NOTE | 2025-09-23 07:28 | HMCIMG ---
EXAM: CR left Hand, 3 View. CLINICAL HISTORY: Pain COMPARISON: None provided. FINDINGS: BONES: No acute fracture or aggressive appearing osseous lesion. Mild osteopenia. JOINTS: No evidence of dislocation. The interphalangeal joint spaces of all digits demonstrate mild osteoarthritis. SOFT TISSUES: The soft tissues appear within normal limits. No radiopaque foreign body is seen. IMPRESSION: 1. No acute osseous injury. 2. Mild osteopenia. 3. Mild osteoarthritis of the interphalangeal joints. /[place]
--- NOTE | 2025-09-23 07:28 | HMCIMG ---
EXAM: CR left Hand, 3 View. CLINICAL HISTORY: Pain COMPARISON: None provided. FINDINGS: BONES: No acute osseous pathology evident. Mild osteopenia. JOINTS: No evidence of dislocation. The interphalangeal joint spaces of all digits demonstrate mild osteoarthritis. SOFT TISSUES: The soft tissues appear within normal limits. No radiopaque foreign body is seen. IMPRESSION: 1. No acute osseous injury. 2. Mild osteopenia. 3. Mild osteoarthritis of the interphalangeal joints. /[place]
== END | disposition home or self-care (01) ==
LOC: RAH 10:59
DX: M19.041 Primary osteoarthritis, right hand (principal); M19.042 Primary osteoarthritis, left hand; M85.842 Other specified disorders of bone density and structure, left hand; M85.841 Other specified disorders of bone density and structure, right hand; M79.642 Pain in left hand; M79.641 Pain in right hand
CPT/HCPCS: 73130